=== PATIENT | female | born 1965 | race Caucasian/White ===

== ENCOUNTER → 2016-11-02 | Outpatient (REF) | payer OTHER ==
[~2016-11-02] MED LIST: EXCETAB OR; FLUO90CA OR; MULTIVIT PO
== END ==
LOC: M SFHCWAGY 10:01
PROVIDERS: ATTEND Nurse Practitioner Women's Health
DX: Z12.4 Encounter for screening for malignant neoplasm of cervix (principal)

== ENCOUNTER → 2016-11-02 | Outpatient (CLI) | payer OTHER ==
--- NOTE | 2016-11-02 12:24 | REPMRS ---
Patient History The patient states she had a clinical breast exam in 11/01 Patient is nulliparous. No known family history of cancer. Taking estrogen for 5 months. Digital Woman Screen Mammo: November 02, 2016 - Exam #: [id number] Bilateral CC and MLO view(s) were taken. Technologist: Joyce Morales, Technologist Prior study comparison: August 13, 2015, digital woman screen mammo performed at [facility]. July 09, 2014, digital woman screen mammo performed at [facility]. April 02, 2013, digital woman screen mammo performed at [facility]. FINDINGS: There are scattered fibroglandular densities. There has been no change in the appearance of the mammogram from the prior studies. There is a mild amount of scattered fibroglandular density which is fairly symmetric. There is no interval development of dominant mass, architectural distortion, or clustered microcalcification suggestive of malignancy. ASSESSMENT: BI-RADS/ACR category 1 mammogram. Negative. Recommendation Routine screening mammogram in 1 year (for women over age 40). This mammogram was interpreted with the aid of an FDA-approved computer-aided dectection system. Electronically Signed By: Tello Burnett MD 11/02/16 [id number]
== END ==
LOC: M WHC 09:52
PROVIDERS: ATTEND Nurse Practitioner Women's Health
DX: Z12.31 Encounter for screening mammogram for malignant neoplasm of breast (principal)
CPT/HCPCS: G0123; G0202; G0463

== ENCOUNTER → 2016-11-05 | Outpatient (CLI) | payer OTHER ==
--- NOTE | 2016-11-05 11:03 | REP ---
LUMBAR SPINE, FIVE VIEWS: HISTORY: Left hip pain. There is no acute fracture or subluxation. The L3-4 through L5-S1 intervertebral discs are decreased in height consistent with disc degeneration. Osteophytes are present on L3-5. The facet joints are normal in appearance. IMPRESSION: Degenerative change as described above. Signed by Sandeep Hernandez MD 11/05/2016 11:09 A
--- NOTE | 2016-11-05 11:13 | REP ---
LEFT HIP, TWO VIEWS: HISTORY: Hip pain. There is no acute fracture or dislocation. There is minimal narrowing of the joint space. IMPRESSION: Degenerative change as described above. Signed by Sandeep Hernandez MD 11/05/2016 11:13 A
== END ==
LOC: M SMT 10:11
PROVIDERS: ATTEND Physician Assistant
DX: M25.552 Pain in left hip (principal); M54.32 Sciatica, left side

== ENCOUNTER → 2017-01-12 | Outpatient (REF) | payer OTHER | LOC: M SFHCWAGY 15:42 | PROVIDERS: ATTEND Nurse Practitioner Women's Health | DX: N94.818 Other vulvodynia (principal); N89.8 Other specified noninflammatory disorders of vagina ==

== ENCOUNTER → 2017-04-14 | Outpatient (CLI) | payer OTHER ==
--- NOTE | 2017-04-15 02:09 | REP ---
Clinical: Abnormal menstrual cycles . Technique: Transabdominal pelvic ultrasound followed by transvaginal examination for better evaluation of the endometrium and adnexa with color Doppler evaluation of the ovaries. Findings: Bladder is unremarkable and measures 5.8 x 8.5 x 8.4 cm . Normal heterogeneous anteverted uterus measures 8.6 x 5.2 x 4.7 cm . The endometrial complex measures 8 mm thickness. No discrete uterine or endometrial abnormalities are appreciated. Bilateral ovaries are normal in appearance and vascularity without evidence for torsion. Right ovary measures 2.7 x 1.1 x 2.2 cm ; R I = 0.38 . Left ovary measures 1.8 x 1.0 x 1.3 cm ; R I = 0.44 . No pelvic fluid or adnexal mass lesion. Impression: 1. Mild endometrial thickening likely related to menstrual cycle requires correlation. 2. No focal pelvic abnormalities noted. Signed by Rob Casey MD 04/15/2017 02:01 A
== END ==
LOC: M RAD 10:13
PROVIDERS: ATTEND Family Medicine
DX: N92.6 Irregular menstruation, unspecified (principal)

== ENCOUNTER → 2017-04-24 | Outpatient (REF) | payer OTHER | LOC: M LAB REF 20:04 | PROVIDERS: ATTEND Physician Assistant | DX: R30.0 Dysuria (principal) ==

== ENCOUNTER → 2017-04-25 | Outpatient (REF) | payer OTHER ==
[2017-04-26 11:55] LABS: BASO % 0.4 % (0.0-1.0); EOS # 0.2 10^3/uL (0.0-0.50); EOS % 3.6 % (0.0-3.0); IMMATURE GRANULOCYTE % 0.2 % (0-0); LYMPH # 1.6 10^3/uL (1.5-4.5); MEAN CORPUSCULAR HEMOGLOBIN 31.5 pg (27.0-33.0); MEAN CORPUSCULAR HGB CONC 33.2 g/dl (32.0-36.5); MEAN CORPUSCULAR VOLUME 94.6 fl (80.0-96.0); MONO # 0.5 10^3/uL (0.0-0.8); MONO % 10.6 % (0.0-5.0); NEUTROPHILS # 2.7 10^3/uL (1.8-7.7); NEUTROPHILS % 53.2 % (36.0-66.0); PLATELET COUNT, AUTOMATED 245 10^3/uL (150-450); RED CELL DISTRIBUTION WIDTH 11.9 % (11.5-14.5)
[2017-04-26 12:39] LABS: FREE T4 1.18 NG/DL (0.76-1.46)
== END ==
LOC: M LABDRAWC 11:33
PROVIDERS: ATTEND Family Medicine
DX: R53.83 Other fatigue (principal)

== ENCOUNTER → 2017-08-25 | Outpatient (REF) | payer OTHER | LOC: M LAB REF 18:33 | DX: N39.0 Urinary tract infection, site not specified (principal) | CPT/HCPCS: 87086 ==

== ENCOUNTER → 2017-11-10 | Outpatient (REF) | payer OTHER ==
[2017-11-11 12:00] LABS: BASO % 0.7 % (0.0-1.0); EOS # 0.2 10^3/uL (0.0-0.50); EOS % 2.8 % (0.0-3.0); HEMATOCRIT 38.7 % (36.0-47.0); HEMOGLOBIN 12.9 g/dl (12.0-15.5); IMMATURE GRANULOCYTE % 0.4 % (0-3.0); LYMPH # 1.6 10^3/uL (1.5-4.5); LYMPH % 28.5 % (24.0-44.0); MEAN CORPUSCULAR HEMOGLOBIN 31.1 pg (27.0-33.0); MEAN CORPUSCULAR HGB CONC 33.3 g/dl (32.0-36.5); MEAN CORPUSCULAR VOLUME 93.3 fl (80.0-96.0); MONO # 0.5 10^3/uL (0.0-0.8); MONO % 8.5 % (0.0-5.0); NEUTROPHILS # 3.4 10^3/uL (1.8-7.7); NEUTROPHILS % 59.1 % (36.0-66.0); PLATELET COUNT, AUTOMATED 233 10^3/uL (150-450); RED BLOOD COUNT 4.15 10^6/uL (4.00-5.40); WHITE BLOOD COUNT 5.7 10^3/uL (4.0-10.0)
[2017-11-11 12:33] LABS: TOTAL 25(OH) VITAMIN D 18.8 NG/ML (30.0-100.0)
[2017-11-11 12:46] LABS: ALBUMIN 3.5 GM/DL (3.2-5.2); ALBUMIN/GLOBULIN RATIO 1.09 (1.00-1.93); ALKALINE PHOSPHATASE 68 U/L (45-117); ALT/SGPT 27 U/L (12-78); ANION GAP 6 MEQ/L (8-16); AST/SGOT 19 U/L (7-37); BILIRUBIN,TOTAL 0.2 MG/DL (0.2-1.0); BLOOD UREA NITROGEN 16 MG/DL (7-18); CALCIUM LEVEL 9.4 MG/DL (8.5-10.1); CARBON DIOXIDE LEVEL 27 MEQ/L (21-32); CHLORIDE LEVEL 108 MEQ/L (98-107); CHOLESTEROL LEVEL 182 MG/DL (<200); CHOLESTEROL RISK RATIO 4.136 (<5); CREATININE FOR GFR 0.94 MG/DL (0.55-1.30); FREE T4 0.79 NG/DL (0.76-1.46); GLOMERULAR FILTRATION RATE > 60.0 (>51); GLUCOSE, FASTING 92 MG/DL (70-100); HDL CHOLESTEROL 44 MG/DL (>40); NON-HDL-C 138 MG/DL; POTASSIUM SERUM 4.6 MEQ/L (3.5-5.1); SODIUM LEVEL 141 MEQ/L (136-145); TOTAL PROTEIN 6.7 GM/DL (6.4-8.2); TRIGLYCERIDES LEVEL 175 MG/DL (<150)
== END ==
LOC: M LABDRAWC 11-11 11:27
DX: Z13.220 Encounter for screening for lipoid disorders (principal); Z13.29 Encounter for screening for other suspected endocrine disorder; Z13.0 Encounter for screening for diseases of the blood and blood-forming organs and certain disorders involving the immune mechanism; E55.9 Vitamin D deficiency, unspecified
CPT/HCPCS: 84443

== ENCOUNTER → 2017-12-02 | Outpatient (CLI) | payer OTHER | LOC: M WHC 10:31 | DX: Z12.31 Encounter for screening mammogram for malignant neoplasm of breast (principal) | CPT/HCPCS: 77067 ==

== ENCOUNTER → 2018-08-03 | Outpatient (REF) | payer OTHER ==
[2018-08-05 15:16] LABS: HPV HYBRID CAPTURE II Negative (Negative)
== END ==
LOC: M SFHCWAGY 12:20
PROVIDERS: ATTEND Nurse Practitioner Women's Health
DX: Z12.4 Encounter for screening for malignant neoplasm of cervix (principal)

== ENCOUNTER → 2018-12-29 | Outpatient (CLI) | payer OTHER ==
--- NOTE | 2018-12-29 14:15 | REPMRS ---
Patient History The patient states she had a clinical breast exam in 10/2018. Patient is postmenopausal and is nulliparous. No known family history of cancer. Taking estrogen for 2 years 5 months. Digital Woman Screen Mammo: December 29, 2018 - Exam #: [id number] Bilateral CC and MLO view(s) were taken. Technologist: Joyce Morales, Technologist Prior study comparison: December 02, 2017, digital woman screen mammo performed at [facility]. November 02, 2016, digital woman screen mammo performed at [facility]. August 13, 2015, digital woman screen mammo performed at [facility]. FINDINGS: There are scattered fibroglandular densities. There has been no change in the appearance of the mammogram from the prior studies. There is a mild amount of scattered fibroglandular density which is fairly symmetric. There is no interval development of dominant mass, architectural distortion, or clustered microcalcification suggestive of malignancy. Assessment: BI-RADS/ACR category 1 mammogram. Negative Mammogram. Recommendation Routine screening mammogram of both breasts in 1 year (for women over age 40). This patient's Lifetime Breast Cancer RIsk is estimated at 12.3 %. This mammogram was interpreted with the aid of an FDA-approved computer-aided dectection system. Electronically Signed By: Tello Burnett MD 12/29/18 [id number]
== END ==
LOC: M WHC 12:57
PROVIDERS: ATTEND Nurse Practitioner Women's Health
DX: Z12.31 Encounter for screening mammogram for malignant neoplasm of breast (principal)

== ENCOUNTER 2019-08-29 10:26 | Day surgery (SDC) | payer OTHER ==
[~2019-08-29] VITALS: Ht 170.2 cm; Wt 109.8 kg
[~2019-08-29 10:26] MED LIST changes: +NS 1,000 ML IV ONE; +PREM0.6254 PO; +PROZ40CA PO
[2019-08-29] MEDS ORDERED: propofoL 200 MG/20 ML VIAL As Ordered ONE ×2 (10:38→12:21)
[2019-08-29] MEDS ORDERED: LIDOCAINE 2% INJ 100 MG/5 ML SDV (FOR ANES.) As Ordered ONE (10:38)
--- NOTE | 2019-08-29 12:34 | ROOR ---
Patient Name: Sammie Buckner Procedure Date: 08/29/2019 12:11 PM Date of : 1965 Age: 54 Room: [facility] Gender: Female Note Status: Finalized Procedure: Total Colonoscopy to Cecum Indications: Change in bowel habits Providers: Isiah Stern MD Referring MD: Renee GARCIA DO Requesting Provider: Medicines: Monitored Anesthesia Care Complications: No immediate complications. Procedure: Pre-Anesthesia Assessment: - The heart rate, respiratory rate, oxygen saturations, blood pressure, adequacy of pulmonary ventilation, and response to care were monitored throughout the procedure. The Colonoscope was introduced through the anus and advanced to the cecum, identified by appendiceal orifice and ileocecal valve. The colonoscopy was performed without difficulty. The patient tolerated the procedure well. The quality of the bowel preparation was fair. Findings: The perianal and digital rectal examinations were normal. Non-bleeding internal hemorrhoids were found during retroflexion. The hemorrhoids were Grade I (internal hemorrhoids that do not prolapse). No other significant abnormalities were identified in a careful examination of the remainder of the colon. The exam was otherwise without abnormality on direct and retroflexion views. Impression: - Preparation of the colon was fair. - Non-bleeding internal hemorrhoids. - The examination was otherwise normal on direct and retroflexion views. - No specimens collected. - The exam was otherwise normal to the cecum. Recommendation: - Patient has a contact number available for emergencies. The signs and symptoms of potential delayed complications were discussed with the patient. Return to normal activities tomorrow. Written discharge instructions were provided to the patient. - High fiber diet. - Discharge patient to home. - Continue present medications. - Repeat colonoscopy in 10 years for screening purposes. - Return to referring physician. - The findings and recommendations were discussed with the patient's family. Isiah Stern MD Isiah Stern MD 08/29/2019 12:34:04 PM Electronically signed by Isiah Stern MD Number of Addenda: 0 Note Initiated On: 08/29/2019 12:11 PM Estimated Blood Loss: Estimated blood loss: none.
[2019-08-29 13:00] VITALS: BP 94/54
== END 2019-08-29 13:26 | disposition home or self-care (01) ==
LOC: M OPP 10:26
PROVIDERS: ATTEND Internal Medicine Gastroenterology
DX: R19.4 Change in bowel habit (principal); K63.5 Polyp of colon; K64.0 First degree hemorrhoids; G47.30 Sleep apnea, unspecified; R19.7 Diarrhea, unspecified; F32.9 Major depressive disorder, single episode, unspecified; R06.83 Snoring; F41.9 Anxiety disorder, unspecified; Z79.890 Hormone replacement therapy; Z79.899 Other long term (current) drug therapy

== ENCOUNTER → 2020-01-03 | Outpatient (REF) | payer OTHER ==
[~2020-01-03] MED LIST changes: -NS 1,000 ML IV ONE
== END ==
LOC: M LAB REF 16:39
PROVIDERS: ATTEND Physician Assistant
DX: N76.0 Acute vaginitis (principal)

== ENCOUNTER → 2020-01-15 | Outpatient (REF) | payer OTHER | LOC: M SFHCWAGY 18:08 | PROVIDERS: ATTEND Nurse Practitioner Women's Health | DX: Z12.4 Encounter for screening for malignant neoplasm of cervix (principal) ==

== ENCOUNTER → 2020-01-15 | Outpatient (CLI) | payer OTHER ==
--- NOTE | 2020-01-15 13:13 | REPMRS ---
Patient History The patient states she had a clinical breast exam in December 2019. Patient is postmenopausal and is nulliparous. No known family history of cancer. Taking estrogen for 4 years. Digital Woman Screen Mammo: January 15, 2020 - Exam #: [id number] Bilateral CC and MLO view(s) were taken. Technologist: Geraldine Reagan Technologist Prior study comparison: December 29, 2018, bilateral digital woman screen mammo performed at [facility]. December 02, 2017, digital woman screen mammo performed at [facility]. November 02, 2016, digital woman screen mammo performed at [facility]. FINDINGS: There are scattered fibroglandular densities. The Volpara volumetric breast density category is:A. There is a new area of apparent spiculation architectural distortion in the lateral left mid breast which merits further evaluation. There has been no other change in the appearance of the mammogram from the prior studies. There is a mild amount of scattered fibroglandular density which is fairly symmetric. 3-D tomosynthesis shows no additional findings. Assessment: BI-RADS/ACR category 0 mammogram, Incomplete: Need additional imaging evaluation and/or prior mammograms for comparison. Recommendation Special view mammogram of both breasts. This patient's Lifetime Breast Cancer Risk is estimated at 12.0 %. This mammogram was interpreted with the aid of an FDA-approved computer-aided dectection system. Ultrasound of the left breast. Electronically Signed By: Tello Burnett MD 01/15/20 [id number]
== END ==
LOC: M WHC 10:29
PROVIDERS: ATTEND Nurse Practitioner Women's Health
DX: Z12.31 Encounter for screening mammogram for malignant neoplasm of breast (principal); R92.8 Other abnormal and inconclusive findings on diagnostic imaging of breast; Z12.4 Encounter for screening for malignant neoplasm of cervix
CPT/HCPCS: 77063; 77067; G0123; G0463

== ENCOUNTER → 2020-01-21 | Outpatient (CLI) | payer OTHER ==
--- NOTE | 2020-01-21 15:07 | REP ---
DIAGNOSTIC MAMMOGRAM LEFT BREAST WITH LEFT BREAST ULTRASOUND: COMPARISON: Mammogram, 01/15/2020, as well as other prior exams. Multiple spot compression views of left breast are performed in the outer aspect. The spot compression views confirm a suspicious spiculated density laterally in the left breast which appears to be at 3 to 4-o'clock position. Approximate diameter is 1.5 cm. There is a tiny adjacent calcification just medial to this density. It is best seen on the CC view. Real-time sonographic evaluation of left breast performed laterally in the region of 3-4 o'clock. No cystic or solid nodule is seen. IMPRESSION: BIRADS 4: BI-RADS/ACR category 4 mammogram. Suspicious Abnormality - biopsy should be considered. ACR 4 suspicious. Persistent spiculated density lateral left breast in the region of 3-4 o'clock with an adjacent tiny microcalcification just medial to this. The persistent spiculated density is best seen on the CC view. There is no sonographic correlate. I would recommend stereotactic biopsy of this spiculated density. The patient letter being requested is M4.
== END ==
LOC: M WHC 08:56
PROVIDERS: ATTEND Nurse Practitioner Women's Health
DX: R92.8 Other abnormal and inconclusive findings on diagnostic imaging of breast (principal)

== ENCOUNTER → 2020-02-06 | Outpatient (CLI) | payer OTHER ==
[2020-02-06 11:38] VITALS: BP 130/84
--- NOTE | 2020-02-06 12:22 | REP ---
SPECIMEN RADIOGRAPHY LEFT BREAST: Two views. HISTORY: Stereotactic needle biopsy procedure. Comparison mammography showed an area of architectural distortion and spiculation in the lateral aspect of the left breast on October 15, 2019 and January 21, 2020. FINDINGS: Two specimen radiographs are presented. There were no microcalcifications in vivo. No microcalcifications are visible on specimen radiography. IMPRESSION: Specimen radiography as above.
--- NOTE | 2020-02-06 12:23 | REP ---
STEREOTACTIC NEEDLE BIOPSY LEFT BREAST. STEREOTACTIC GUIDANCE: HISTORY: Mammography January 21, 2020 and January 15, 2020 showed an area of spiculation in the left lateral breast. FINDINGS: Stereotactic imaging guidance is provided to Dr. Douglas who performed stereotactic needle biopsy procedure.
--- NOTE | 2020-02-06 12:31 | REP ---
DIGITAL DIAGNOSTIC UNILATERAL LEFT BREAST MAMMOGRAPHY WITH CAD AND 3D TOMOGRAPHY: HISTORY: Marker clip placement views. The patient status post needle biopsy procedure for a an area of spiculation and architectural distortion in the left lateral breast on mammography January 21, 2020 and January 05, 2020. MAMMOGRAPHIC FINDINGS: Craniocaudal and true mediolateral views are obtained. These demonstrate the marker clip in good position relative to the area of spiculation architectural distortion. This is best seen on the CC view and CC tomography views. IMPRESSION: Marker clip in good position.
--- NOTE | 2020-04-10 18:43 | ROOPDOC ---
[facility] Report Of Operation Report of Operation This is a late entry note for the encounter from the date 02/06/20. Delay is due to major systemwide [facility] computer outage. Procedure date 02/06/20 Dx: left architectural distortion Procedure: left breast stereotactic biopsy with clip placement Findings: clip is at the medial aspect of architectural distortion, no calcifications noted in the specimen Surgeon: Toby Phoenix Lidocaine 1% LOT [id number] Expiration 12/2022 Sodium Bicarbonate 8.4% LOT [id number] Expiration 12/2020 Hydromark clip LOT [id number] Expiration 04/2021 REF: T1 titanium shaped 1 (closed Spring) Bx device: Stereotactic Mammotome Revolve Dual Vacuum- assisted Biopsy System 10 G LOT [id number] Expiration 09/2022 REF [id number] Informed consent was obtained in the preop area. The most common risk and possible complications including bleeding, hematoma, bruising, infection, injury to surrounding structures were explained to the patient and she expressed understanding. Patient was taken to the procedure room and placed prone on the [facility] [facility] Prone Breast Biopsy table with the left breast hanging through the table aperture. Left breast was placed into Cranio-Caudal compression and [employer] merna images were taken. Patient reported moderate discomfort with compression. Suspicious architectural distortion was identified on the merna images and target was set. CC approach from the top was chosen for this procedure. At this time, since we were able to confirm visibility of the suspicious architectural distortion and patient tolerated prone positioning allowing to proceed with the biopsy, appropriate time out was done stating patients name, date of , and the procedure to be performed. The left breast in CC compression was prepped in the usual fashion. Plain Lidocaine 1% and 8.4% sodium bicarbonate 10:1 mix was used to anesthetize the skin, the biopsy site and tissues along the anticipated biopsy tract. Small skin incision was made with blade number 11. Mammotome 10 G stereotactic breast biopsy device was inserted through the incision and advanced to the previously set coordinates marking the target lesion. Pre-fire imaging was taken to assure appropriate positioning. At this time, Mammotome 10 G breast biopsy device was fired and vacuum assisted biopsies were collected. Additional injections of lidocaine and bicarbonate mixture were needed, to a total of 28 cc, due to patient reported severe discomfort. The biopsy samples were investigated with [employer] system and no calcifications were observed. Biopsy samples were then placed in the formaldehyde, marked with patients name and left breast biopsy site, and sent to pathology for evaluation. Hydromark clip was placed into the Mammotome biopsy device channel and deployed. Post-deployment imaging was done to assure appropriate clip deployment. At this point, paddle CC compression of the left breast was released and manual pressure was held to decrease harmonic effect and to assure hemostasis. No bleeding was noted upon removal of the pressure. Patient was slowly repositioned and placed into sitting position, and then assisted off the table. Post-biopsy left breast mammogram was done. Clip was noted on the medical aspect on left breast architectural distortion. Per radiology report, clip is in appropriate position. Postprocedural dressing was placed. Patient tolerated procedure well and was taken to the recovery unit in stable condition. Discharge instructions were discussed with the patient and she expressed understanding. TOBY PHOENIX DO Apr 10, 2020 18:43
== END ==
LOC: M WHCPRO 10:02
PROVIDERS: ATTEND Surgery
DX: R92.8 Other abnormal and inconclusive findings on diagnostic imaging of breast (principal); R92.1 Mammographic calcification found on diagnostic imaging of breast

== ENCOUNTER → 2020-09-22 | Outpatient (REF) | payer OTHER ==
[2020-09-22 16:58] LABS: BASO % 0.8 % (0.0-1.0); EOS # 0.2 10^3/uL (0.0-0.5); HEMATOCRIT 41.2 % (36.0-47.0); HEMOGLOBIN 13.3 g/dl (12.0-15.5); LYMPH # 1.8 10^3/uL (1.5-5.0); LYMPH % 35.4 % (24.0-44.0); MEAN CORPUSCULAR HEMOGLOBIN 30.4 pg (27.0-33.0); MEAN CORPUSCULAR HGB CONC 32.3 g/dl (32.0-36.5); MEAN CORPUSCULAR VOLUME 94.3 fl (80.0-96.0); MONO # 0.5 10^3/uL (0.0-0.8); MONO % 9.7 % (2.0-8.0); NEUTROPHILS # 2.5 10^3/uL (1.5-8.5); NEUTROPHILS % 50.9 % (36.0-66.0); PLATELET COUNT, AUTOMATED 261 10^3/uL (150-450); RED BLOOD COUNT 4.37 10^6/uL (4.00-5.40); WHITE BLOOD COUNT 4.9 10^3/uL (4.0-10.0)
[2020-09-22 17:05] LABS: HEMOGLOBIN A1c 5.9 %
[2020-09-22 17:19] LABS: ALBUMIN 3.6 GM/DL (3.2-5.2); BILIRUBIN,TOTAL 0.3 MG/DL (0.2-1.0); CALCIUM LEVEL 9.8 MG/DL (8.5-10.1); CHOLESTEROL RISK RATIO 3.836 (<5); CREATININE FOR GFR 1.02 MG/DL (0.55-1.30); FREE T4 0.9 NG/DL (0.76-1.46); GLOMERULAR FILTRATION RATE 59.9 (>51); POTASSIUM SERUM 4.9 MEQ/L (3.5-5.1); THYROID STIMULATING HORMONE 2.22 uIU/ML (0.358-3.740); TOTAL PROTEIN 6.9 GM/DL (6.4-8.2)
[2020-09-22 17:20] LABS: TOTAL 25(OH) VITAMIN D 23.1 NG/ML (30.0-100.0)
== END ==
LOC: M LABDRAWC 15:50
PROVIDERS: ATTEND Physician Assistant
DX: F33.1 Major depressive disorder, recurrent, moderate (principal); E66.8 Other obesity

== ENCOUNTER → 2021-06-07 | Outpatient (REF) | payer OTHER ==
[2021-06-07 20:13] LABS: GC DNA AMPLIFICATION NEGATIVE (NEGATIVE)
== END ==
LOC: M WUC 18:01
PROVIDERS: ATTEND Physician Assistant
DX: N76.0 Acute vaginitis (principal)

== ENCOUNTER → 2021-11-11 | Outpatient (REF) | payer OTHER ==
[2021-11-11 12:12] LABS: PLATELET COUNT, AUTOMATED 247 10^3/uL (150-450)
[2021-11-11 12:26] LABS: INR 0.89; PROTHROMBIN TIME 12.4 SECONDS (12.7-14.5)
[2021-11-11 12:27] LABS: PARTIAL THROMBOPLASTIN TIME 28.2 SECONDS (25.9-37.0)
[2021-11-11 12:53] LABS: HCG, SERUM QUALITATIVE NEGATIVE (NEGATIVE)
== END ==
LOC: M LABDRAWC 11:12
PROVIDERS: ATTEND Physical Medicine & Rehabilitation
DX: M51.36 Other intervertebral disc degeneration, lumbar region (principal)

== ENCOUNTER → 2022-07-22 | Outpatient (CLI) | payer OTHER | LOC: M RAD 10:14 | PROVIDERS: ATTEND Family Medicine | DX: Z82.49 Family history of ischemic heart disease and other diseases of the circulatory system (principal) ==

== ENCOUNTER → 2023-01-13 | Outpatient (REF) | payer OTHER ==
[2023-01-13 18:46] LABS: BASO % 0.6 % (0.0-1.0); EOS # 0.1 10^3/uL (0.0-0.5); HEMATOCRIT 40.5 % (36.0-47.0); HEMOGLOBIN 13.1 g/dl (12.0-15.5); LYMPH # 1.5 10^3/uL (1.5-5.0); MEAN CORPUSCULAR HEMOGLOBIN 30.4 pg (27.0-33.0); MEAN CORPUSCULAR HGB CONC 32.3 g/dl (32.0-36.5); MONO # 0.5 10^3/uL (0.0-0.8); MONO % 9.5 % (2.0-8.0); NEUTROPHILS # 2.8 10^3/uL (1.5-8.5); NEUTROPHILS % 56.7 % (36.0-66.0); PLATELET COUNT, AUTOMATED 283 10^3/uL (150-450); RED BLOOD COUNT 4.31 10^6/uL (4.00-5.40)
[2023-01-13 19:01] LABS: ALBUMIN 3.7 G/DL (3.2-5.2); ALKALINE PHOSPHATASE 75 U/L (46-116); ALT/SGPT < 9 U/L (7.0-40); AST/SGOT 16 U/L (<34); BILIRUBIN,TOTAL 0.4 MG/DL (0.3-1.2); BLOOD UREA NITROGEN 14 MG/DL (9-23); CALCIUM LEVEL 9.3 MG/DL (8.5-10.1); CARBON DIOXIDE LEVEL 24 MMOL/L (20-31); CHLORIDE LEVEL 108 MMOL/L (98-107); CHOLESTEROL LEVEL 165 MG/DL (<200); CHOLESTEROL RISK RATIO 3.71 (<5); CREATININE FOR GFR 0.88 MG/DL (0.55-1.30); GLOMERULAR FILTRATION RATE > 60.0 (>51); GLUCOSE, FASTING 90 MG/DL (60-100); HDL CHOLESTEROL 44.4 MG/DL (>40); LDL CHOLESTEROL 93.6 MG/DL (<100); NON-HDL-C 120.6 MG/DL; POTASSIUM SERUM 4.5 MMOL/L (3.5-5.1); SODIUM LEVEL 135 MMOL/L (136-145); TOTAL PROTEIN 6.3 G/DL (5.7-8.2); TRIGLYCERIDES LEVEL 135 MG/DL (<150)
[2023-01-13 19:02] LABS: FREE T4 0.97 NG/DL (0.89-1.76)
[2023-01-13 19:03] LABS: THYROID STIMULATING HORMONE 1.605 uIU/ML (0.55-4.78); TOTAL 25(OH) VITAMIN D 24.7 NG/ML (20.0-100.0)
[2023-01-15 14:13] LABS: IgG P18 AB Absent (.); IgG P23 AB Absent (.); IgG P28 AB Absent (.); IgG P30 AB Absent (.); IgG P39 AB Absent (.); IgG P41 AB Present (.); IgG P45 AB Absent (.); IgG P66 AB Absent (.); IgG P93 AB Absent (.); IgM P23 AB Absent (.); IgM P39 AB Absent (.); IgM P41 AB Absent (.); LYME IgG WB INTERPRETATION Negative (.); LYME IgM WB INTERPRETATION Negative (.)
== END ==
LOC: M LABDRAWC 17:11
PROVIDERS: ATTEND Family Medicine
DX: S00.462A Insect bite (nonvenomous) of left ear, initial encounter (principal); E55.9 Vitamin D deficiency, unspecified; Z13.220 Encounter for screening for lipoid disorders; Z13.0 Encounter for screening for diseases of the blood and blood-forming organs and certain disorders involving the immune mechanism; Z13.29 Encounter for screening for other suspected endocrine disorder; X58.XXXA Exposure to other specified factors, initial encounter; Y92.9 Unspecified place or not applicable; Y93.9 Activity, unspecified; Y99.9 Unspecified external cause status

== ENCOUNTER 2023-02-21 02:12 | Emergency (ER) | payer OTHER ==
[~2023-02-21] VITALS: Ht 170.2 cm; Wt 113.6 kg
[2023-02-21 03:01] LABS: BLOOD UREA NITROGEN 23 MG/DL (9-23); CALCIUM LEVEL 9.8 MG/DL (8.5-10.1); CARBON DIOXIDE LEVEL 23 MMOL/L (20-31); CHLORIDE LEVEL 106 MMOL/L (98-107); CK-MB VALUE MASS < 1.0 NG/ML (<3.6); CPK CREATINE PHOSPHOKINASE 53 U/L (34-145); CREATININE FOR GFR 0.96 MG/DL (0.55-1.30); GLOMERULAR FILTRATION RATE > 60.0 (>51); GLUCOSE, FASTING 142 MG/DL (60-100); MB/CK RELATIVE INDEX 1.88 (< OR =4); POTASSIUM SERUM 4.2 MMOL/L (3.5-5.1); SODIUM LEVEL 138 MMOL/L (136-145)
[2023-02-21 03:07] LABS: BASO % 0.4 % (0.0-1.0); EOS # 0.1 10^3/uL (0.0-0.5); EOS % 0.7 % (0.0-3.0); HEMATOCRIT 37.1 % (36.0-47.0); HEMOGLOBIN 12.4 g/dl (12.0-15.5); LYMPH # 1.8 10^3/uL (1.5-5.0); LYMPH % 16.1 % (24.0-44.0); MEAN CORPUSCULAR HEMOGLOBIN 31.1 pg (27.0-33.0); MEAN CORPUSCULAR HGB CONC 33.4 g/dl (32.0-36.5); MONO # 0.8 10^3/uL (0.0-0.8); MONO % 7.1 % (2.0-8.0); NEUTROPHILS # 8.3 10^3/uL (1.5-8.5); NEUTROPHILS % 75.4 % (36.0-66.0); PLATELET COUNT, AUTOMATED 278 10^3/uL (150-450); RED BLOOD COUNT 3.99 10^6/uL (4.00-5.40)
[2023-02-21] MEDS ORDERED: ONDANSETRON 4MG 2ML VIAL IV ONE (03:10)
[2023-02-21] MEDS: MORPHINE 4 MG/ML 1ML VIAL IV PRN ×2 (03:17→04:00)
[2023-02-21] MEDS ORDERED: ISOVUE-370 76% 100ML VIAL As Ordered ONE (03:17)
[2023-02-21 04:00] LABS: LIPASE 44 U/L (12-53)
[2023-02-21 04:02] LABS: ALBUMIN 3.5 G/DL (3.2-5.2); ALKALINE PHOSPHATASE 82 U/L (46-116); ALT/SGPT 20 U/L (7.0-40); AST/SGOT 11 U/L (<34); BILIRUBIN,DIRECT < 0.1 MG/DL (<0.4); BILIRUBIN,TOTAL 0.2 MG/DL (0.3-1.2); TOTAL PROTEIN 6.2 G/DL (5.7-8.2)
[2023-02-21 04:23] VITALS: TEMP 98.7
[2023-02-21 04:39] LABS: CK-MB VALUE MASS < 1.0 NG/ML (<3.6)
[2023-02-21 04:40] LABS: CPK CREATINE PHOSPHOKINASE 52 U/L (34-145); MB/CK RELATIVE INDEX 1.92 (< OR =4)
[2023-02-21 05:30] VITALS: BP 175/85
[2023-02-21] MEDS ORDERED: LEVS0.123 PO (05:36)
[2023-02-21 05:40] VITALS: O2SAT 97
== END 2023-02-21 06:22 | disposition home or self-care (01) ==
LOC: EDBD 02:12 → M ED 02:12
DX: K80.50 Calculus of bile duct without cholangitis or cholecystitis without obstruction (principal); Z79.899 Other long term (current) drug therapy
CPT/HCPCS: 71045; 71275; 74177; 76705; 80048; 80076; 81001; 82550; 82553; 83690; 84484; 85025; 93005; 93041; 94760; 96374; 96375; 96376; 99285; J2405; Q9967

== ENCOUNTER 2023-03-21 00:24 | Emergency (ER) | payer OTHER ==
[~2023-03-21] VITALS: Ht 170.2 cm; Wt 100.0 kg
[~2023-03-21 00:24] MED LIST changes: +LEVS0.123 PO
[2023-03-21 00:31] VITALS: BP 134/84; TEMP 98.7; O2SAT 97
== END 2023-03-21 02:29 | disposition left against medical advice (07) ==
LOC: M ED 00:24 → EDBD 00:24 → M ED 02:29
DX: Z53.21 Procedure and treatment not carried out due to patient leaving prior to being seen by health care provider (principal)

== ENCOUNTER → 2023-07-25 | Outpatient (CLI) | payer OTHER | LOC: M PLAIMG 15:51 → M PLALAB 15:51 | PROVIDERS: ATTEND Family Medicine | DX: M19.012 Primary osteoarthritis, left shoulder (principal) ==

== ENCOUNTER → 2024-05-15 | Outpatient (REF) | payer OTHER ==
[2024-05-15 17:50] LABS: BASO % 0.6 % (0.0-1.0); EOS # 0.1 10^3/uL (0.0-0.5); HEMATOCRIT 40.5 % (36.0-47.0); HEMOGLOBIN 13.2 g/dl (12.0-15.5); LYMPH # 1.5 10^3/uL (1.5-5.0); LYMPH % 30.2 % (24.0-44.0); MEAN CORPUSCULAR HGB CONC 32.6 g/dl (32.0-36.5); MEAN CORPUSCULAR VOLUME 95.1 fl (80.0-96.0); MONO # 0.5 10^3/uL (0.0-0.8); MONO % 10.2 % (2.0-8.0); NEUTROPHILS # 2.8 10^3/uL (1.5-8.5); NEUTROPHILS % 56.8 % (36.0-66.0); PLATELET COUNT, AUTOMATED 279 10^3/uL (150-450); RED BLOOD COUNT 4.26 10^6/uL (4.00-5.40); WHITE BLOOD COUNT 4.9 10^3/uL (4.0-10.0)
[2024-05-15 17:58] LABS: ALBUMIN 3.5 G/DL (3.2-5.2); ALKALINE PHOSPHATASE 83 U/L (35-104); ALT/SGPT 25 U/L (7.0-40); AST/SGOT 15 U/L (<34); BILIRUBIN,TOTAL 0.4 MG/DL (0.3-1.2); BLOOD UREA NITROGEN 15 MG/DL (9-23); CALCIUM LEVEL 10.2 MG/DL (8.5-10.1); CARBON DIOXIDE LEVEL 27 MMOL/L (20-31); CHLORIDE LEVEL 111 MMOL/L (98-107); CHOLESTEROL LEVEL 179 MG/DL (<200); CHOLESTEROL RISK RATIO 3.63 (<5); CREATININE FOR GFR 0.94 MG/DL (0.55-1.30); GLOMERULAR FILTRATION RATE > 60.0 (>51); GLUCOSE, FASTING 94 MG/DL (60-100); HDL CHOLESTEROL 49.3 MG/DL (>40); LDL CHOLESTEROL 110.7 MG/DL (<100); NON-HDL-C 129.7 MG/DL; POTASSIUM SERUM 4.7 MMOL/L (3.5-5.1); SODIUM LEVEL 140 MMOL/L (136-145); THYROID STIMULATING HORMONE 1.709 uIU/ML (0.55-4.78); TOTAL 25(OH) VITAMIN D 19.8 NG/ML (20.0-100.0); TOTAL PROTEIN 6.7 G/DL (5.7-8.2); TRIGLYCERIDES LEVEL 95 MG/DL (<150)
[2024-05-15 17:59] LABS: FREE T4 0.97 NG/DL (0.89-1.76)
== END ==
LOC: M LABDRAWC 16:29
PROVIDERS: ATTEND Family Medicine
DX: Z13.220 Encounter for screening for lipoid disorders (principal); Z13.0 Encounter for screening for diseases of the blood and blood-forming organs and certain disorders involving the immune mechanism; Z13.29 Encounter for screening for other suspected endocrine disorder; E55.9 Vitamin D deficiency, unspecified

== ENCOUNTER → 2024-11-14 | Outpatient (REF) | payer OTHER ==
[2024-11-14 19:00] LABS: ALBUMIN 3.3 G/DL (3.2-5.2); BILIRUBIN,TOTAL 0.5 MG/DL (0.3-1.2); CALCIUM LEVEL 9.7 MG/DL (8.5-10.1); CHOLESTEROL RISK RATIO 4.14 (<5); CREATININE FOR GFR 0.87 MG/DL (0.55-1.30); FREE T4 1.25 NG/DL (0.89-1.76); GLOMERULAR FILTRATION RATE 76.7 (>51); HDL CHOLESTEROL 42.9 MG/DL (>40); LDL CHOLESTEROL 112.5 MG/DL (<100); NON-HDL-C 135.1 MG/DL; PERCENT SATURATION 38.1 % (13.2-45.0); POTASSIUM SERUM 4.8 MMOL/L (3.5-5.1); THYROID STIMULATING HORMONE 2.637 uIU/ML (0.55-4.78); TOTAL 25(OH) VITAMIN D 41.4 NG/ML (20.0-100.0); TOTAL PROTEIN 6.3 G/DL (5.7-8.2)
== END ==
LOC: M LABDRAWC 17:24
PROVIDERS: ATTEND Family Medicine
DX: E55.9 Vitamin D deficiency, unspecified (principal); R53.83 Other fatigue; Z13.220 Encounter for screening for lipoid disorders